=== PATIENT | male | born 1995 | race Caucasian/White ===

== ENCOUNTER 2018-09-21 19:25 | Emergency (ER) | payer OTHER ==
[~2018-09-21] VITALS: Ht 188 cm; Wt 78.0 kg
[2018-09-21 19:31] VITALS: Ht 188 cm; Wt 78.0 kg
[2018-09-21 21:21] VITALS: BP 122/79
== END 2018-09-21 21:21 | disposition home or self-care (01) ==
LOC: ED 19:25
DX: F41.9 Anxiety disorder, unspecified (principal); Z86.73 Personal history of transient ischemic attack (TIA), and cerebral infarction without residual deficits; R20.2 Paresthesia of skin; R42 Dizziness and giddiness

== ENCOUNTER 2019-03-31 14:58 | Emergency (ER) | payer OTHER ==
[~2019-03-31] VITALS: Ht 188 cm; Wt 81.2 kg
[2019-03-31 15:01] VITALS: Ht 188 cm; Wt 81.2 kg
[2019-03-31 16:23] VITALS: BP 116/72
== END 2019-03-31 18:15 | disposition home or self-care (01) ==
LOC: ED 14:58
DX: R51 Headache (principal); J45.909 Unspecified asthma, uncomplicated